=== PATIENT | female | born 2000 | race Caucasian/White ===

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

== ENCOUNTER 2022-07-08 10:13 | Emergency (ER) | payer MEDICAID, OTHER ==
[2022-07-08 15:23] VITALS: BP 115/64; PULSE 80
== END 2022-07-08 13:55 | disposition home or self-care (01) ==
LOC: JD.ED 10:13
DX: Z11.1 Encounter for screening for respiratory tuberculosis (principal); Z72.0 Tobacco use
CPT/HCPCS: 71045; 71045-26; 86480; 99283

== ENCOUNTER 2022-12-01 11:40 | Emergency (ER) | payer MEDICAID ==
[2022-12-01 12:10] LABS: BASOPHILS ABSOLUTE AUTO 0.1 K/mm3 (0.0-0.2); BASOPHILS PERCENT AUTO 0.8 % (0.0-1.0); EOSINOPHILS ABSOLUTE AUTO 0.3 K/mm3 (0.0-0.4); EOSINOPHILS PERCENT AUTO 3.5 % (0.0-6.0); HEMATOCRIT 39.5 % (37.0-47.0); HEMOGLOBIN 13.5 gm/dl (12.0-16.0); IMMATURE GRAN ABSOLUTE AUTO 0.02 K/mm3 (0.00-0.05); IMMATURE GRAN PERCENT AUTO 0.2 % (0.0-0.4); LYMPHOCYTES ABSOLUTE AUTO 3.4 K/mm3 (1.0-4.8); LYMPHOCYTES PERCENT AUTO 37.3 % (24.0-44.0); MEAN CORPUSCULAR HEMOGLOBIN 32.1 pg (28.0-32.0); MEAN CORPUSCULAR HGB CONC 34.2 g/dl (32.0-36.0); MEAN CORPUSCULAR VOLUME 93.8 fl (83.0-99.0); MEAN PLATELET VOLUME 10.1 fl (9.4-12.3); MONOCYTES ABSOLUTE AUTO 0.8 K/mm3 (0.0-0.8); MONOCYTES PERCENT AUTO 8.2 % (0.0-8.0); NEUTROPHILS ABSOLUTE AUTO 4.6 K/mm3 (1.8-7.7); PLATELET COUNT,PLT 392 K/mm3 (150-400); RED BLOOD CELL COUNT 4.21 M/mm3 (4.10-5.30); WHITE BLOOD CELL COUNT,WBC 9.18 K/mm3 (3.9-11.3)
[2022-12-01 12:29] LABS: A/G RATIO 1.1 (1-2); ALBUMIN 4.1 g/dl (3.4-5.0); ANION GAP 13.1 (5-15); BILIRUBIN TOTAL 0.6 mg/dL (0.2-1.0); BUN/CREATININE RATIO 7.1 (14-18); CALCIUM 8.9 mg/dL (8.5-10.1); CREATININE 0.7 mg/dL (0.55-1.02); EST CRCL DRUG DOSING (CG) 105.16 mL/min; ETHANOL BLOOD MEDICAL 0.08 gm% (0.00); POTASSIUM,K 4.1 mEq/L (3.5-5.1); PROTEIN TOTAL,TP 7.8 g/dl (6.4-8.2)
[2022-12-01 14:51] LABS: BILIRUBIN,URINE NEGATIVE (Negative); COLOR,URINE YELLOW (Yellow); GLUCOSE,URINE NEGATIVE (Negative); KETONES,URINE NEGATIVE (Negative); LEUKOCYTE ESTERASE,URINE 2+ (Negative); NITRITE,URINE POSITIVE (Negative); OCCULT BLOOD,URINE NEGATIVE (Negative); PH,URINE 6.5 (5.0-8.0); PROTEIN,URINE NEGATIVE (Negative); UROBILINOGEN,URINE 0.2 (0.2-1.0)
[2022-12-01 15:03] LABS: BARBITURATE SCREEN,URINE NEGATIVE (CUTOFF=200); BENZODIAZEPINES SCREEN,URINE NEGATIVE (CUTOFF=150); BUPRENORPHINE SCREEN,URINE NEGATIVE (CUTOFF=10); METHADONE SCREEN, URINE NEGATIVE (CUTOFF=200); METHAMPHETAMINES SCREEN, URINE NEGATIVE (CUTOFF=500); OXYCODONE SCREEN,URINE NEGATIVE (CUT0FF=100); PROPOXYPHENE SCREEN,URINE NEGATIVE (CUTOFF=300); THC SCREEN,URINE 20 NG/ML PRESUMPTIVE POSITIVE (CUTOFF=50)
[2022-12-01 15:09] LABS: AMPHETAMINES SCREEN, URINE NEGATIVE (CUTOFF=500)
[2022-12-01] MEDS ORDERED: LORazepam 1 MG Tab PO ONE ×2 (15:09→19:55)
[2022-12-01 15:12] LABS: APPEARANCE,URINE SLT CLOUDY (Clear)
[2022-12-01 15:13] LABS: BACTERIA,URINE MANY /hpf (FEW); MUCUS,URINE MODERATE /hpf (FEW); RBC,URINE 0-5 /hpf (0-5); WBC,URINE 20-30 /hpf (0-5)
[2022-12-01] MEDS ORDERED: LORazepam 1 MG Tab ONE (19:54)
[2022-12-02 11:12] VITALS: BP 110/58; PULSE 80
== END 2022-12-02 10:31 | disposition home or self-care (01) ==
LOC: JD.ED 11:40
DX: F32.9 Major depressive disorder, single episode, unspecified (principal)
CPT/HCPCS: 36415; 80053; 80306; 80307; 81001; 81025; 85025; 87086; 87088; 87186; 99285; A9270; 99283